=== PATIENT | male | born 1965 | race Caucasian/White ===

== ENCOUNTER 2017-04-16 13:31 | Emergency (ER) | payer MEDICAID, OTHER ==
[~2017-04-16] VITALS: Ht 180.3 cm; Wt 79.4 kg
[2017-04-16 13:52] VITALS: BP 145/104
== END 2017-04-16 14:55 | disposition home or self-care (01) ==
LOC: ER 13:31
DX: M19.90 Unspecified osteoarthritis, unspecified site (principal); Z76.0 Encounter for issue of repeat prescription; F17.210 Nicotine dependence, cigarettes, uncomplicated

== ENCOUNTER 2019-07-28 19:45 | Emergency (ER) | payer MEDICAID ==
[~2019-07-28] VITALS: Ht 177.8 cm; Wt 72.6 kg
[~2019-07-28 19:45] MED LIST: LEVO500T21 PO; METR500T PO; PANT40TA2 PO
[2019-07-28 22:31] LABS: Urine Bacteria NONE SEEN /hpf (None Seen); Urine Blood Negative /uL (Negative); Urine Specific Gravity 1.008 (1.001-1.035); Urine WBC <1 /hpf (0 - 3)
[2019-07-28 22:50] LABS: Alcohol, Urine < 3.0 mg/dL (0-5); Amphetamine Screen, Urine NEGATIVE (NEGATIVE); Barbiturate Scree,Urine NEGATIVE (NEGATIVE); Benzodiazephine Screen, Urine NEGATIVE (NEGATIVE); Cannabinoid Screen, Urine NEGATIVE (NEGATIVE); Cocaine Screen, Urine NEGATIVE (NEGATIVE); Opiate Scree,Urine NEGATIVE (NEGATIVE); Phencyclidine Screen, Urine NEGATIVE (NEGATIVE)
[2019-07-28 23:01] LABS: Basophils # (auto) 0.1 uL; Basophils % (auto) 0.9 % (0.0-2.0); Eosinophils # (auto) 0.2 uL; Eosinophils % (auto) 2.2 % (0.0-7.0); Hematocrit 48.7 % (41.0-53.0); Hemoglobin 17.4 g/dL (13.5-17.5); Lymphocytes # (auto) 2.7 uL; Lymphocytes % (auto) 34.2 % (10.0-50.0); Mean Corpuscular Hemoglobin 34.5 pg (28.0-32.0); Mean Corpuscular Hgb Conc. 35.7 g/dL (32.0-36.0); Mean Corpuscular Volume 96.8 fL (80.0-100.0); Monocytes # (auto) 0.4 uL; Monocytes % (auto) 5.5 % (0.0-12.0); Neutrophils # (auto) 4.5 uL; Neutrophils % (auto) 57.2 % (37.0-80.0); Nucleated Red Blood Cells % 0.1 %; Platelet Count (auto) 206 10^3/uL (140-450); Red Blood Cells 5.03 10^6/uL (4.5-5.90); Red Cell Distribution Width 13.1 % (11.8-14.3); White Blood Cell 7.9 10^3/uL (4.4-10.8)
[2019-07-28 23:23] LABS: INR 1.01 (0.9-1.15); Partial Thromboplastin Time 27.1 sec (23.64-32.05)
[2019-07-28 23:27] LABS: Albumin 3.7 g/dL (3.4-5.0); Calcium 8.5 mg/dL (8.5-10.1); Chloride 107 mmol/L (98-107); Glucose 76 mg/dL (74-106); Potassium 3.5 mmol/L (3.5-5.1); Sodium 138 mmol/L (136-145)
[2019-07-28 23:33] LABS: Alanine Aminotransferase 18 U/L (16-61); Alkaline Phosphatase 74 U/L (45-117); Anion Gap 5 (5-15); Aspartate Aminotransferase 9 U/L (15-37); BUN/Creatinine Ratio 11.3; Bilirubin, Total 1.1 mg/dL (0.2-1.0); Blood Urea Nitrogen 12 mg/dL (7-18); Carbon Dioxide 26 mmol/L (21-32); GFR African American 93 mL/min; GFR Non-African American 77 mL/min; Magnesium 2.4 mg/dL (1.6-2.6); Total Protein 6.7 g/dL (6.4-8.2)
[2019-07-29 01:11] VITALS: BP 148/90
== END 2019-07-29 01:57 ==
LOC: EDBD 19:45 → ER 19:50
DX: R41.82 Altered mental status, unspecified (principal); R07.89 Other chest pain; Z76.5 Malingerer [conscious simulation]; M19.90 Unspecified osteoarthritis, unspecified site; F32.9 Major depressive disorder, single episode, unspecified; F17.210 Nicotine dependence, cigarettes, uncomplicated; Z79.899 Other long term (current) drug therapy
CPT/HCPCS: 36415; 70450; 71045; 80053; 80307; 80329; 81001; 82140; 83735; 83880; 84443; 84484; 85025; 85610; 85730; 93005; 94761

== ENCOUNTER 2019-10-13 10:48 | Emergency (ER) | payer MEDICAID ==
[~2019-10-13] VITALS: Ht 180.3 cm; Wt 79.4 kg
[~2019-10-13 10:48] MED LIST changes: +HYDR-4798 PO; -LEVO500T21 PO; -METR500T PO; -PANT40TA2 PO; +ZOLP10TA PO
[2019-10-13 11:05] VITALS: BP 99/69
== END 2019-10-13 13:06 | disposition home or self-care (01) ==
LOC: ER 10:48
DX: R06.02 Shortness of breath (principal); R42 Dizziness and giddiness; Z76.0 Encounter for issue of repeat prescription; Z95.5 Presence of coronary angioplasty implant and graft; M19.90 Unspecified osteoarthritis, unspecified site

== ENCOUNTER 2019-11-09 11:11 | Emergency (ER) | payer MEDICAID ==
[~2019-11-09] VITALS: Ht 180.3 cm; Wt 77.1 kg
[2019-11-09 11:38] LABS: Basophils # (auto) 0.1 uL; Eosinophils # (auto) 0.1 uL; Lymphocytes # (auto) 2.3 uL; White Blood Cell 7.4 10^3/uL (4.4-10.8)
[2019-11-09 11:39] LABS: Basophils % (auto) 1.1 % (0.0-2.0); Eosinophils % (auto) 1.8 % (0.0-7.0); Hematocrit 47.7 % (41.0-53.0); Hemoglobin 16.8 g/dL (13.5-17.5); Lymphocytes % (auto) 30.7 % (10.0-50.0); Mean Corpuscular Hemoglobin 34.8 pg (28.0-32.0); Mean Corpuscular Hgb Conc. 35.2 g/dL (32.0-36.0); Monocytes # (auto) 0.4 uL; Neutrophils # (auto) 4.5 uL; Neutrophils % (auto) 60.4 % (37.0-80.0); Nucleated Red Blood Cells % 0.1 %; Platelet Count (auto) 297 10^3/uL (140-450); Red Blood Cells 4.82 10^6/uL (4.5-5.90); Red Cell Distribution Width 13.8 % (11.8-14.3)
[2019-11-09] MEDS ORDERED: ASPirin 81 mg TAB PO ONE (11:45)
[2019-11-09 11:53] LABS: INR 1.02 (0.9-1.15); Partial Thromboplastin Time 25.4 sec (23.64-32.05)
[2019-11-09 11:56] LABS: Albumin 3.9 g/dL (3.4-5.0); Anion Gap 4 (5-15); Blood Urea Nitrogen 15 mg/dL (7-18); Calcium 9.2 mg/dL (8.5-10.1); Carbon Dioxide 28 mmol/L (21-32); Chloride 108 mmol/L (98-107); Glucose 103 mg/dL (74-106); Potassium 4.5 mmol/L (3.5-5.1); Sodium 140 mmol/L (136-145)
[2019-11-09] MEDS ORDERED: NITROGLYCERIN 0.4 MG SL TAB SL ONE (12:00)
[2019-11-09 12:01] LABS: Alanine Aminotransferase 24 U/L (16-61); Alkaline Phosphatase 93 U/L (45-117); Aspartate Aminotransferase 20 U/L (15-37); BUN/Creatinine Ratio 13.4; Bilirubin, Total 1.1 mg/dL (0.2-1.0); GFR African American 87 mL/min; GFR Non-African American 72 mL/min; Total Protein 7.6 g/dL (6.4-8.2)
[2019-11-09 15:36] VITALS: BP 120/78
== END 2019-11-09 15:37 | disposition home or self-care (01) ==
LOC: ER 11:11
DX: F41.9 Anxiety disorder, unspecified (principal); I25.2 Old myocardial infarction; I10 Essential (primary) hypertension; E78.5 Hyperlipidemia, unspecified; F17.210 Nicotine dependence, cigarettes, uncomplicated; Z98.61 Coronary angioplasty status
CPT/HCPCS: 36415; 71046; 80053; 84484; 85025; 85610; 85730; 93005